=== PATIENT | female | born 1960 | race Caucasian/White ===

== ENCOUNTER 2018-08-03 16:50 | Observation (INO) ==
--- NOTE | 2018-08-03 17:32 | DR.H&P ---
H&P - History & Physical for Day of: H&P Date: 08/03/18 - Chief Complaint Chief Complaint: chest pain, shortness of breath, palpitations - History of Present Illness History of Present Illness: Patient is a 57 year old female that is being adm itted secondary to chest pain and shortness of breath. Patient reports that she was sick last week with URI and symptoms improved. Does state that she has started having chest pain and palpitations. Does report that it has been having difficulty swallowing. States that she has been depressed and felt like giving up. Patient will be admitted for further evaluation. - Past Medical History Past Medical History: Anxiety, Hypothyroidism Additional Medical History: murmur - Past Surgical History Surgical History: Unknown - Social History Does patient currently use any type of tobacco product: No Have you used tobacco products in the last 12 months: No Type of Tobacco Use: None Does any household member use tobacco: No Alcohol Use: None Drug Use: None - Review of Systems Constitutional: See HPI Eyes: See HPI ENT: See HPI Respiratory: See HPI, Cough, Shortness of Breath Cardiovascular: Chest Pain, See HPI, Palpitations Gastrointestinal: See HPI Genitourinary: See HPI Musculoskeletal: See HPI Skin: See HPI Neurological: See HPI Oriented: Normal Eyes: Normal Ear: Normal Nose: Normal Throat: Normal Respiratory: Diminished Throughout Cardiovascular: Murmur : Normal Auscultation: Bowel Sounds: Normal Tenderness: Normal Skin: Normal Musculoskeletal: Normal Psychiatric: Depression Mood Description: Depressed, Sad, Anxious Affect: Anxious, Depressed Speech Pattern: Clear - Assessment/Plan (1) Chest pain Status: Acute Plan: ECHO. Chest x-ray. Cardiac enzymes. EKG - Allergies Allergies/Adverse Reactions: Allergies Allergy/AdvReac Type Severity Reaction Status Date / Time No Known Drug Allergies Allergy Unverified 08/03/18 17:30
[2018-08-03 17:58] LABS: BASOPHILS # (AUTO) 0.1 X10^3/uL (0.0-0.1); EOSINOPHILS # (AUTO) 0.2 x10^3/uL (0.0-0.2); EOSINOPHILS % (AUTO) 1.7 % (0.9-2.9); HEMOGLOBIN 14.4 g/dL (12.0-16.0); LYMPHOCYTES # (AUTO) 3.8 X10^3/uL (1.3-2.9); LYMPHOCYTES % (AUTO) 26.4 % (21.0-51.0); MEAN CORPUSCULAR HEMOGLOBIN 29.2 pg (27.0-34.0); MEAN CORPUSCULAR HGB CONC 33.4 g/dL (33.0-35.0); MEAN CORPUSCULAR VOLUME 87.7 fL (80.0-100.0); MEAN PLATELET VOLUME 8.2 fL (7.4-11.0); MONOCYTES % (AUTO) 6.9 % (0.0-13.0); NEUTROPHILS # (AUTO) 9.1 x10^3/uL (2.2-4.8); PLATELET COUNT 332 X10^3/uL (150.0-450.0); RED BLOOD COUNT 4.91 X10^6/uL (3.5-5.4); RED CELL DISTRIBUTION WIDTH 14.9 % (11.6-16.5); WHITE BLOOD COUNT 14.2 X10^3/uL (3.6-10.0)
[2018-08-03] MEDS ORDERED: PROVENTIL NEB TX 0.083% 2.5MG/ 3ML NEB SCH (18:00)
[2018-08-03 18:08] LABS: ALANINE AMINOTRANSFERASE 55 Units/L (12-78); ALBUMIN 3.7 g/dL (3.4-5.0); ALKALINE PHOSPHATASE 69 Units/L (46-116); ASPARTATE AMINO TRANSFERASE 15 Units/L (15-37); BLOOD UREA NITROGEN 18 mg/dL (7-18); CALCIUM 9.3 mg/dL (8.5-10.1); CARBON DIOXIDE 29.7 mmol/L (21-32); CHLORIDE 103 mmol/L (98-107); CREATININE 1.12 mg/dL (0.55-1.02); MAGNESIUM 2.1 mg/dL (1.7-2.9); SODIUM 142 mmol/L (136-145); TOTAL PROTEIN 7.3 g/dL (6.4-8.2); eGFR NON BLACK RACES 53 (>60)
[2018-08-03 18:22] LABS: BILIRUBIN,URINE NEGATIVE (NEGATIVE); BLOOD/HEMOGLOBIN,URINE NEGATIVE (NEGATIVE); GLUCOSE, URINE NEGATIVE (NEGATIVE); KETONES,URINE NEGATIVE (NEGATIVE); LEUKOCYTE ESTERASE ,URINE NEGATIVE (NEGATIVE); NITRITES,URINE NEGATIVE (NEGATIVE); PROTEIN,URINE NEGATIVE (NEGATIVE); UROBILINOGEN,URINE NORMAL (NORMAL)
[2018-08-03 18:30] LABS: APPEARANCE,URINE CLEAR (CLEAR); COLOR,URINE YELLOW (YELLOW)
[2018-08-03 18:45] LABS: CKMB % 1.7 % (<4); CREATINE KINASE 241 Units/L (26-192); TROPONIN I < 0.02 ng/mL (0-1.5)
[2018-08-03 18:47] LABS: CREATINE KINASE MB 4.1 ng/mL (0-4.0)
[2018-08-03] MEDS: LOVENOX INJ 30 MG SYR SC SCH (20:32)
[2018-08-03] MEDS: TUSSIONEX PENNKINETIC SUSP PO PRN (20:33)
[2018-08-03] MEDS ORDERED: K-DUR TAB 20 MEQ PO ONE (21:30)
[2018-08-03] MEDS: AMBIEN PO PRN (21:52)
[2018-08-03 23:50] LABS: CKMB % 1.5 % (<4); CREATINE KINASE 186 Units/L (26-192); CREATINE KINASE MB 2.7 ng/mL (0-4.0); TROPONIN I < 0.02 ng/mL (0-1.5)
[2018-08-04] MEDS ORDERED: XOPENEX 1.25 MG/3 ML NEBULE NEB SCH
--- NOTE | 2018-08-04 05:00 | RAD ---
Chest, 1 view Indication: Chest pain, generalized weakness Comparison: None Findings: The cardiac silhouette is unremarkable. The lungs are essentially clear without focal infiltrates or pleural effusion. No pneumothorax. Impression: No acute chest process. Reported By:
[2018-08-04 05:53] LABS: BASOPHILS # (AUTO) 0.1 X10^3/uL (0.0-0.1); BASOPHILS % (AUTO) 0.8 % (0.2-1.0); EOSINOPHILS # (AUTO) 0.2 x10^3/uL (0.0-0.2); EOSINOPHILS % (AUTO) 2.1 % (0.9-2.9); HEMATOCRIT 40.2 % (36.0-47.0); HEMOGLOBIN 13.4 g/dL (12.0-16.0); LYMPHOCYTES # (AUTO) 2.9 X10^3/uL (1.3-2.9); LYMPHOCYTES % (AUTO) 29.4 % (21.0-51.0); MEAN CORPUSCULAR HEMOGLOBIN 29.2 pg (27.0-34.0); MEAN CORPUSCULAR HGB CONC 33.3 g/dL (33.0-35.0); MEAN CORPUSCULAR VOLUME 87.6 fL (80.0-100.0); MEAN PLATELET VOLUME 8.5 fL (7.4-11.0); MONOCYTES # (AUTO) 0.8 x10^3/uL (0.3-0.8); MONOCYTES % (AUTO) 8.2 % (0.0-13.0); NEUTROPHILS # (AUTO) 5.9 x10^3/uL (2.2-4.8); NEUTROPHILS % (AUTO) 59.5 % (42.0-75.0); PLATELET COUNT 287 X10^3/uL (150.0-450.0); RED BLOOD COUNT 4.59 X10^6/uL (3.5-5.4); RED CELL DISTRIBUTION WIDTH 15.1 % (11.6-16.5); WHITE BLOOD COUNT 9.9 X10^3/uL (3.6-10.0)
[2018-08-04 06:19] LABS: ALANINE AMINOTRANSFERASE 47 Units/L (12-78); ALBUMIN 3.1 g/dL (3.4-5.0); ALKALINE PHOSPHATASE 58 Units/L (46-116); ASPARTATE AMINO TRANSFERASE 18 Units/L (15-37); BLOOD UREA NITROGEN 14 mg/dL (7-18); CALCIUM 8.8 mg/dL (8.5-10.1); CHLORIDE 104 mmol/L (98-107); CKMB % 1.7 % (<4); COR CA(FOR HYPOALB) 9.5 mg/dL (8.5-10.1); CREATINE KINASE 168 Units/L (26-192); CREATINE KINASE MB 2.8 ng/mL (0-4.0); CREATININE 0.93 mg/dL (0.55-1.02); SODIUM 141 mmol/L (136-145); TOTAL PROTEIN 6.2 g/dL (6.4-8.2); TROPONIN I < 0.02 ng/mL (0-1.5); eGFR NON BLACK RACES > 60 (>60)
[2018-08-04] MEDS ORDERED: POTASSIUM CHL 40 MEQ/NS 0.45% 500 ML IV PRN (06:21)
[2018-08-04] MEDS ORDERED: K-RIDER 10 MEQ/NS 100 ML 10 MEQ/100 ML BAG IV PRN (06:21)
[2018-08-04] MEDS ORDERED: MICRO K EXTEN CAP 10 MEQ PO PRN (06:21)
[2018-08-04] MEDS ORDERED: KLOR-CON PO PRN (06:21)
[2018-08-04] MEDS ORDERED: POTASSIUM CHL 60 MEQ/NS 0.45% 500 ML IV PRN (06:21)
[2018-08-04] MEDS ORDERED: POTASSIUM CHLORIDE LIQ 20 MEQ UDC PO PRN (06:21)
[2018-08-04 06:34] LABS: CHOL/HDL RATIO 4.2 (0.0-5.0)
[2018-08-04 07:19] VITALS: BMI 39.6
[2018-08-04] MEDS: LOVENOX INJ 30 MG SYR SC SCH ×2 (08:54→20:47)
[2018-08-04] MEDS: ULTRAM PO PRN (08:55)
[2018-08-04] MEDS: K-DUR TAB 20 MEQ PO PRN ×2 (08:55→20:47)
[2018-08-04] MEDS: TUSSIONEX PENNKINETIC SUSP PO PRN (08:55)
[2018-08-04] MEDS: BROVANA IN SCH ×2 (09:13→21:00)
[2018-08-04] MEDS: XOPENEX 1.25 MG/3 ML NEBULE NEB PRN ×2 (09:27→17:05)
[2018-08-04] MEDS: PULMICORT NEB TX 0.5 MG NEB SCH ×2 (09:27→21:15)
[2018-08-04] MEDS ORDERED: SOLU-Medrol 40 MG VIAL IVP SCH (11:00)
[2018-08-04] MEDS ORDERED: NS 250 ML IV 250 ML ONE (11:48)
[2018-08-04] MEDS: ZITHROMAX INJ 500 MG VIAL 500 MG in NS 250 ML IV 250 ML IV SCH (12:03)
[2018-08-04] MEDS: NORCO 5/325 MG TAB PO PRN (12:04)
[2018-08-04] MEDS: PROTONIX INJ 40 MG VIAL IVP SCH (12:04)
[2018-08-04] MEDS ORDERED: ZOFRAN INJ 4 MG VIAL IVP PRN (14:08)
[2018-08-04 17:45] LABS: ABG BASE EXCESS 1.8 mmol/L (-2.0-2.0); ABG HCO3 27.2 mmol/L (22-26)
[2018-08-04 17:46] LABS: ABG ALLEN TEST POS
[2018-08-04] MEDS: AMBIEN PO PRN (20:47)
[2018-08-04] MEDS: SOLU-Medrol 40 MG VIAL IVP SCH (21:01)
[2018-08-05] MEDS: SOLU-Medrol 40 MG VIAL IVP SCH (05:15)
[2018-08-05 05:21] LABS: BASOPHILS % (AUTO) 0.2 % (0.2-1.0); HEMATOCRIT 40.6 % (36.0-47.0); HEMOGLOBIN 13.5 g/dL (12.0-16.0); LYMPHOCYTES # (AUTO) 0.9 X10^3/uL (1.3-2.9); LYMPHOCYTES % (AUTO) 7.4 % (21.0-51.0); MEAN CORPUSCULAR HEMOGLOBIN 29.6 pg (27.0-34.0); MEAN CORPUSCULAR HGB CONC 33.2 g/dL (33.0-35.0); MEAN CORPUSCULAR VOLUME 89.1 fL (80.0-100.0); MEAN PLATELET VOLUME 8.4 fL (7.4-11.0); MONOCYTES # (AUTO) 0.2 x10^3/uL (0.3-0.8); MONOCYTES % (AUTO) 1.2 % (0.0-13.0); NEUTROPHILS # (AUTO) 11.2 x10^3/uL (2.2-4.8); NEUTROPHILS % (AUTO) 91.2 % (42.0-75.0); PLATELET COUNT 290 X10^3/uL (150.0-450.0); RED BLOOD COUNT 4.55 X10^6/uL (3.5-5.4); RED CELL DISTRIBUTION WIDTH 14.5 % (11.6-16.5); WHITE BLOOD COUNT 12.3 X10^3/uL (3.6-10.0)
[2018-08-05 05:30] LABS: ALANINE AMINOTRANSFERASE 55 Units/L (12-78); ALBUMIN 3.1 g/dL (3.4-5.0); ALKALINE PHOSPHATASE 62 Units/L (46-116); ASPARTATE AMINO TRANSFERASE 16 Units/L (15-37); BLOOD UREA NITROGEN 13 mg/dL (7-18); CALCIUM 9.1 mg/dL (8.5-10.1); CARBON DIOXIDE 27.5 mmol/L (21-32); CHLORIDE 103 mmol/L (98-107); COR CA(FOR HYPOALB) 9.8 mg/dL (8.5-10.1); COR NA(FOR HYPERGLY) 143 mmol/L (136-145); CREATININE 1.02 mg/dL (0.55-1.02); SODIUM 140 mmol/L (136-145); TOTAL PROTEIN 6.7 g/dL (6.4-8.2); eGFR NON BLACK RACES 59 (>60)
[2018-08-05 06:02] LABS: PLATELET MORPHOLOGY COMMENT NORMAL (NORMAL)
[2018-08-05] MEDS: PROTONIX INJ 40 MG VIAL IVP SCH (09:15)
[2018-08-05] MEDS: ZITHROMAX INJ 500 MG VIAL 500 MG in NS 250 ML IV 250 ML IV SCH (09:15)
[2018-08-05] MEDS: LOVENOX INJ 30 MG SYR SC SCH ×2 (09:19→21:19)
[2018-08-05] MEDS: BROVANA IN SCH ×2 (09:25→20:31)
[2018-08-05] MEDS: PULMICORT NEB TX 0.5 MG NEB SCH ×2 (09:28→20:21)
[2018-08-05] MEDS: XOPENEX 1.25 MG/3 ML NEBULE NEB PRN ×2 (09:29→18:45)
[2018-08-05] MEDS ORDERED: NS 100 ML IV 100 ML ONE (09:41)
--- NOTE | 2018-08-05 10:36 | CT ---
HISTORY: Chest pain Study: CTA chest with contrast for pulmonary embolus Comparison: None Technique: Axial post-contrast images with coronal, sagittal, and three-dimensional maximum intensity projection images obtained and evaluated. Dose reduction procedures were used with mA/kv adjusted for body size. Findings: There is no evidence for acute pulmonary thromboembolic disease in the main pulmonary arteries, right and left main pulmonary arteries, lobar branches . Examination more distally is not possible due to suboptimal bolus timing. Examination of the mediastinum demonstrated no evidence for mediastinal masses, enlarged mediastinal or enlarged hilar adenopathy, or pleural effusions. The thoracic aorta is normal. No chest wall or axillary abnormality is identified. Those portions of the upper abdominal organs visualized were within normal limits. Examination of the lung albright demonstrated no significant nodules, masses, alveolar infiltrates, areas of consolidation, peribronchial thickening, or bronchiectasis. IMPRESSION: No evidence for acute pulmonary thromboembolic disease in the main pulmonary artery, right and left main pulmonary arteries, and lobar branches. Evaluation more peripherally is not possible due to suboptimal bolus timing. Normal thoracic aorta Lungs clear Reported By:
[2018-08-05 11:24] LABS: T4 (THYROXINE) 9.6 ug/dL (4.7-13.3); TSH (3RD GENERATION) 0.939 uIU/mL (0.358-3.74)
[2018-08-05] MEDS: ULTRAM PO PRN ×2 (11:59→17:15)
[2018-08-05] MEDS ORDERED: ATARAX TAB 25 MG PO PRN (15:52)
[2018-08-05] MEDS: TESSALON PERLES PO SCH ×2 (18:17→21:20)
[2018-08-05] MEDS: CELEXA PO SCH (18:17)
[2018-08-05] MEDS: HYDROCHLOROTHIAZIDE 25 MG TAB PO SCH (18:17)
[2018-08-05] MEDS: FLONASE NASAL SPRAY ENOSTRIL SCH (18:17)
[2018-08-05] MEDS: ZESTRIL TAB 10 MG PO SCH (18:17)
[2018-08-05] MEDS: NORCO 5/325 MG TAB PO PRN (21:20)
[2018-08-05] MEDS: AMBIEN PO PRN (21:20)
[2018-08-06 05:45] LABS: BASOPHILS % (AUTO) 0.2 % (0.2-1.0); HEMATOCRIT 37.1 % (36.0-47.0); HEMOGLOBIN 12.3 g/dL (12.0-16.0); LYMPHOCYTES # (AUTO) 2.5 X10^3/uL (1.3-2.9); LYMPHOCYTES % (AUTO) 10.2 % (21.0-51.0); MEAN CORPUSCULAR HEMOGLOBIN 29.1 pg (27.0-34.0); MEAN CORPUSCULAR HGB CONC 33.2 g/dL (33.0-35.0); MEAN CORPUSCULAR VOLUME 87.7 fL (80.0-100.0); MEAN PLATELET VOLUME 8.6 fL (7.4-11.0); MONOCYTES # (AUTO) 0.9 x10^3/uL (0.3-0.8); MONOCYTES % (AUTO) 3.8 % (0.0-13.0); NEUTROPHILS # (AUTO) 20.8 x10^3/uL (2.2-4.8); NEUTROPHILS % (AUTO) 85.8 % (42.0-75.0); PLATELET COUNT 293 X10^3/uL (150.0-450.0); RED BLOOD COUNT 4.23 X10^6/uL (3.5-5.4); RED CELL DISTRIBUTION WIDTH 14.9 % (11.6-16.5)
[2018-08-06 05:54] LABS: ABG ALLEN TEST POS
[2018-08-06 05:58] LABS: ALANINE AMINOTRANSFERASE 43 Units/L (12-78); ALBUMIN 2.9 g/dL (3.4-5.0); ALKALINE PHOSPHATASE 58 Units/L (46-116); ASPARTATE AMINO TRANSFERASE 14 Units/L (15-37); BLOOD UREA NITROGEN 18 mg/dL (7-18); CALCIUM 8.8 mg/dL (8.5-10.1); CARBON DIOXIDE 28.9 mmol/L (21-32); CHLORIDE 103 mmol/L (98-107); COR CA(FOR HYPOALB) 9.7 mg/dL (8.5-10.1); CREATININE 0.87 mg/dL (0.55-1.02); SODIUM 140 mmol/L (136-145); eGFR NON BLACK RACES > 60 (>60)
[2018-08-06] MEDS: NORCO 5/325 MG TAB PO PRN ×2 (06:33→21:55)
[2018-08-06] MEDS: TESSALON PERLES PO SCH ×3 (06:33→22:05)
[2018-08-06 06:45] LABS: PLATELET MORPHOLOGY COMMENT NORMAL (NORMAL); WHITE BLOOD COUNT 24.2 X10^3/uL (3.6-10.0)
[2018-08-06] MEDS ORDERED: SYNTHROID 25 mcg TAB PO SCH (09:00)
[2018-08-06] MEDS: PULMICORT NEB TX 0.5 MG NEB SCH ×3 (09:08→21:40)
[2018-08-06] MEDS: BROVANA IN SCH ×2 (09:08→21:30)
[2018-08-06] MEDS: PROTONIX INJ 40 MG VIAL IVP SCH (09:43)
[2018-08-06] MEDS: LOVENOX INJ 30 MG SYR SC SCH ×2 (09:44→21:54)
[2018-08-06] MEDS: ZITHROMAX INJ 500 MG VIAL 500 MG in NS 250 ML IV 250 ML IV SCH (09:44)
[2018-08-06] MEDS: ZESTRIL TAB 10 MG PO SCH ×2 (09:44→12:11)
[2018-08-06] MEDS: CELEXA PO SCH (09:44)
[2018-08-06] MEDS: HYDROCHLOROTHIAZIDE 25 MG TAB PO SCH ×2 (09:45→12:09)
[2018-08-06] MEDS: FLONASE NASAL SPRAY ENOSTRIL SCH (09:45)
[2018-08-06] MEDS: TUSSIONEX PENNKINETIC SUSP PO PRN ×2 (09:45→21:54)
[2018-08-06] MEDS: ULTRAM PO PRN ×2 (12:11→17:29)
[2018-08-06 17:05] LABS: FREE T4 (FREE THYROXINE) 1.13 ng/dL (0.76-1.46); TSH (3RD GENERATION) 2.465 uIU/mL (0.358-3.74)
[2018-08-06] MEDS: XOPENEX 1.25 MG/3 ML NEBULE NEB PRN (17:43)
[2018-08-06] MEDS: AMBIEN PO PRN (21:54)
[2018-08-07 05:24] LABS: BASOPHILS % (AUTO) 0.3 % (0.2-1.0); EOSINOPHILS % (AUTO) 0.4 % (0.9-2.9); HEMATOCRIT 37.7 % (36.0-47.0); HEMOGLOBIN 12.5 g/dL (12.0-16.0); LYMPHOCYTES # (AUTO) 3.6 X10^3/uL (1.3-2.9); LYMPHOCYTES % (AUTO) 30.9 % (21.0-51.0); MEAN CORPUSCULAR HEMOGLOBIN 29.3 pg (27.0-34.0); MEAN CORPUSCULAR HGB CONC 33.2 g/dL (33.0-35.0); MEAN CORPUSCULAR VOLUME 88.4 fL (80.0-100.0); MEAN PLATELET VOLUME 8.5 fL (7.4-11.0); MONOCYTES # (AUTO) 0.8 x10^3/uL (0.3-0.8); MONOCYTES % (AUTO) 7.1 % (0.0-13.0); NEUTROPHILS # (AUTO) 7.2 x10^3/uL (2.2-4.8); NEUTROPHILS % (AUTO) 61.3 % (42.0-75.0); PLATELET COUNT 287 X10^3/uL (150.0-450.0); RED BLOOD COUNT 4.27 X10^6/uL (3.5-5.4); RED CELL DISTRIBUTION WIDTH 14.8 % (11.6-16.5)
--- NOTE | 2018-08-07 05:24 | CT ---
CT neck soft tissues without contrast Indication: Dysphagia, upper airway obstruction Technique: Helical CT images of the soft tissues were obtained without IV contrast. Reformatted images in the coronal and sagittal planes were also generated for review. Comparison: None Findings: Please note that evaluation for soft tissue pathology within the neck is severely limited without IV contrast. Accounting for this, the unenhanced nasopharynx, oropharynx, hypopharynx and larynx appear grossly normal. The base of the tongue and lymphoid tissues within Waldeyer's ring are also grossly unremarkable. No discrete mass, fluid collection or lymphadenopathy is identified in the neck. The parotid and submandibular glands appear normal. A small coarsely calcified left thyroid gland nodule is noted. Included portions of the brain and skull base show no acute abnormality. The imaged mediastinum and lung apices are unremarkable. Review of bone windows demonstrate degenerative changes of the cervical spine without acute or aggressive osseous abnormality. Impression: No significant abnormality identified within the limitations of a noncontrast exam. Reported By:
[2018-08-07 05:40] LABS: ALANINE AMINOTRANSFERASE 43 Units/L (12-78); ALBUMIN 2.9 g/dL (3.4-5.0); ALKALINE PHOSPHATASE 55 Units/L (46-116); ASPARTATE AMINO TRANSFERASE 16 Units/L (15-37); BLOOD UREA NITROGEN 16 mg/dL (7-18); CALCIUM 8.6 mg/dL (8.5-10.1); CARBON DIOXIDE 32.2 mmol/L (21-32); CHLORIDE 102 mmol/L (98-107); COR CA(FOR HYPOALB) 9.5 mg/dL (8.5-10.1); SODIUM 139 mmol/L (136-145); TOTAL PROTEIN 5.9 g/dL (6.4-8.2); eGFR NON BLACK RACES > 60 (>60)
[2018-08-07 06:20] LABS: WHITE BLOOD COUNT 11.7 X10^3/uL (3.6-10.0)
[2018-08-07] MEDS: NORCO 5/325 MG TAB PO PRN (06:26)
[2018-08-07] MEDS: TESSALON PERLES PO SCH (06:26)
[2018-08-07] MEDS: BROVANA IN SCH (08:01)
[2018-08-07] MEDS: PULMICORT NEB TX 0.5 MG NEB SCH (08:02)
[2018-08-07] MEDS: TUSSIONEX PENNKINETIC SUSP PO PRN ×2 (09:49→09:50)
[2018-08-07] MEDS: CELEXA PO SCH (09:49)
[2018-08-07] MEDS: ZESTRIL TAB 10 MG PO SCH (09:49)
[2018-08-07] MEDS: FLONASE NASAL SPRAY ENOSTRIL SCH (09:50)
[2018-08-07] MEDS: LOVENOX INJ 30 MG SYR SC SCH (09:50)
[2018-08-07] MEDS: ZITHROMAX INJ 500 MG VIAL 500 MG in NS 250 ML IV 250 ML IV SCH (10:06)
[2018-08-07] MEDS: PROTONIX INJ 40 MG VIAL IVP SCH (10:06)
[2018-08-07 10:26] VITALS: BP 120/59
== END 2018-08-07 11:00 | disposition home or self-care (01) ==
LOC: MED/SURG
PROVIDERS: ADMIT Internal Medicine; ATTEND Internal Medicine
DX: E87.6 Hypokalemia; R53.1 Weakness; K21.9 Gastro-esophageal reflux disease without esophagitis; E03.8 Other specified hypothyroidism; R26.81 Unsteadiness on feet; R06.2 Wheezing; I10 Essential (primary) hypertension; J20.9 Acute bronchitis, unspecified; R07.89 Other chest pain; F41.8 Other specified anxiety disorders
CPT/HCPCS: 36415; 36600; 70490; 71010; 71045; 71275; 80053; 80061; 81003; 82550; 82553; 82803; 83735; 84132; 84436; 84439; 84443; 84484; 85025; 85610; 85730; 87070; 87205; 93005; 93306; 94640; 96372; 96374; A4216; A4222; C9113; G0378; J0456; J1650; J2405; J2920; J7050; J7613; J7626